=== PATIENT | female | born 1990 ===

== ENCOUNTER 2016-10-31 00:20 | Emergency (ER) | payer OTHER ==
[2016-10-31 01:03] VITALS: BP 110/59; PULSE 86; RESP 16; TEMP 98.8; O2SAT 100
--- NOTE | 2016-10-31 01:28 | ED PDOC ---
HPI: Chest Pain Time Seen by Provider: 10/31/16 00:49 Chief Complaint (Nursing): Chest Pain Chief Complaint (Provider): chest pain History Per: Patient History/Exam Limitations: no limitations Onset/Duration Of Symptoms: Hrs Current Symptoms Are (Timing): Still Present Quality: Squeezing, "Pain" Exacerbating Factors: Turning, Movement, Deep Breathing Additional History Per: Patient Additional Complaint(s): 25 y/o female presents with left-sided chest pain x 5 hours. Patient states she was laying down when pain presented, which is worsened by movement and deep breaths. Denies fever, cough, congestion, palpitations, shortness of breath, leg pain/swelling, recent travel, OCP use, tobacco use. Patient currently on Amoxicillin for right hand pain/swelling x 1 week. Patient states symptoms started after using latex gloves. Associated itching. Denies numbness/weakness, drainage from area. Past Medical History Reviewed: Historical Data, Nursing Documentation, Vital Signs Vital Signs: Last Vital Signs Temp 98.8 F 10/31/16 00:59 Pulse 86 10/31/16 00:59 Resp 16 10/31/16 00:59 BP 110/59 L 10/31/16 00:59 Pulse Ox 100 10/31/16 03:19 - Medical History PMH: No Chronic Diseases - Surgical History Surgical History: No Surg Hx - Family History Family History: States: Unknown Family Hx - Living Arrangements Living Arrangements: With Family - Social History Current smoker - smoking cessation education provided: No Alcohol: Social Drugs: Denies - Immunization History Hx Tetanus Toxoid Vaccination: No Hx Influenza Vaccination: No Hx Pneumococcal Vaccination: No - Home Medications Home Medications: Ambulatory Orders Medication Instructions Recorded Naproxen [Naprosyn Tab] 500 mg PO BID PRN #20 tab 04/01/15 Miconazole 2% [Miconazole 2% Cream] 1 ea EXT BID PRN #1 bottle 11/13/15 DiphenhydrAMINE [Benadryl] 25 mg PO Q4 PRN #30 cap 10/31/16 Hydrocortisone Janay 0.2% Cr 1 applic TP BID #1 tube 10/31/16 [Westcort] Naproxen [Naprosyn] 500 mg PO Q12 PRN #20 tablet 10/31/16 - Allergies Allergies/Adverse Reactions: Allergies Allergy/AdvReac Type Severity Reaction Status Date / Time latex Allergy RASH Verified 10/31/16 01:04 Wells Criteria for PE - Wells Criteria for Pulmonary Embolism Clinical Signs and Symptoms of DVT: No P.E is #1 Diagnosis, or Equally Likely: No Heart Rate >100: No Immobilization at least 3 days;Surgery previous 4 weeks: No Previous, objectively diagnosed PE or DVT: No Hemoptysis: No Malignancy w/treatment within 6 months, or palliative: No Total Score: 0 Review of Systems ROS Statement: Except As Marked, All Systems Reviewed And Found Negative Cardiovascular: Positive for: Chest Pain Physical Exam - Reviewed Nursing Documentation Reviewed: Yes Vital Signs Reviewed: Yes - Physical Exam Appears: Positive for: Well, Non-toxic, No Acute Distress Head Exam: Positive for: ATRAUMATIC, NORMAL INSPECTION, NORMOCEPHALIC Skin: Positive for: Normal Color Eye Exam: Positive for: Normal appearance ENT: Positive for: Normal ENT Inspection Cardiovascular/Chest: Positive for: Regular Rate, Rhythm. Negative for: Chest Non Tender (tender to palpate left anterior chest wall) Respiratory: Positive for: Normal Breath Sounds Gastrointestinal/Abdominal: Positive for: Normal Exam Back: Positive for: Normal Inspection Extremity: Positive for: Normal ROM, Swelling (distal digits of right hand, + excoriations; no temp change, drainage) Neurologic/Psych: Positive for: Alert, Oriented. Negative for: Motor/Sensory Deficits - Laboratory Results Result Diagrams: 10/31/16 02:03 10/31/16 02:03 - ECG ECG: Positive for: Viewed By Me (reviewed by ED attending) ECG Rhythm: Positive for: Sinus Rhythm O2 Sat by Pulse Oximetry: 100 Pulse Ox Interpretation: Normal - Radiology X-Ray: Viewed By Me X-Ray Interpretation: No Acute Disease - Progress ED Course And Treament: labs, xray, ekg, IV toradol On re-eval, patient states she is feeling better. Patient educated on findings, discharged with rx Naproxen, Benadryl, Westcort cream. Advised follow up PMD 2-3 days. Return to ED for worsening/concerning symptoms. Disposition - Clinical Impression Clinical Impression: Atypical chest pain, Contact dermatitis - Patient ED Disposition Is Patient to be Admitted: No Counseled Patient/Family Regarding: Studies Performed, Diagnosis, Need For Followup, Rx Given - Disposition Disposition: Routine/Home Disposition Time: 03:14 Condition: IMPROVED Prescriptions: DiphenhydrAMINE [Benadryl] 25 mg PO Q4 PRN #30 cap PRN Reason: Allergy Symptoms Hydrocortisone Janay 0.2% Cr [Westcort] 1 applic TP BID #1 tube Naproxen [Naprosyn] 500 mg PO Q12 PRN #20 tablet PRN Reason: Pain, Moderate (4-7) Instructions: Contact Dermatitis (ED), Chest Wall Pain (ED)
[2016-10-31 02:06] LABS: BASO # 0.1 K/uL (0.0-0.2); BASO % 0.7 % (0.0-2.0); EOS # 0.3 K/uL (0.0-0.7); EOS % 2.9 % (0.0-4.0); HEMATOCRIT 36.9 % (34.0-47.0); LYMPH # 3.1 K/uL (1.0-4.3); MEAN CELL VOLUME 90.4 fl (81.0-99.0); MEAN CORPUSCULAR HEMOGLOBIN 31.1 pg (27.0-31.0); MEAN CORPUSCULAR HGB CONC 34.4 g/dL (33.0-37.0); MEAN PLATELET VOLUME 8.1 fl (7.2-11.7); MONO # 0.8 K/uL (0.0-0.8); MONO % 8.1 % (0.0-10.0); NEUT # 5.1 K/uL (1.8-7.0); NEUT % 55.3 % (50.0-75.0); NRBC % 0.1 % (0.0-0.0); RED CELL DISTRIBUTION WIDTH 12.5 % (11.5-14.5); WHITE BLOOD COUNT 9.3 K/uL (4.8-10.8)
[2016-10-31 02:29] LABS: ALB/GLOB RATIO 1.5 (1.0-2.1); ALKALINE PHOSPHATASE 54 U/L (38-126); ALT/SGPT 34 U/L (9-52); AST/SGOT 24 U/L (14-36); BILIRUBIN,TOTAL 0.3 mg/dl (0.2-1.3); BLOOD UREA NITROGEN 12 mg/dl (7-17); CALCIUM 8.9 mg/dL (8.4-10.2); CARBON DIOXIDE 25 mmol/L (22-30); CHLORIDE 105 mmol/L (98-107); GFR AFRICAN-AMERICAN > 60; GLUCOSE,RANDOM 94 mg/dL (65-105); POTASSIUM 3.5 MMOL/L (3.6-5.0); SODIUM 139 mmol/l (132-148); TOTAL PROTEIN 7.3 G/DL (6.3-8.2)
--- NOTE | 2016-10-31 10:36 | CARD ---
APPROVED REPORT EKG Measurement Heart [id number] <Conclusion> Normal sinus rhythm Normal ECG
--- NOTE | 2016-10-31 10:38 | RAD ---
HISTORY: COMPARISON: No prior. TECHNIQUE: Chest PA and lateral FINDINGS: LINES AND TUBES: None. LUNG AND PLEURA: There is mild pulmonary hyperinflation and peribronchial thickening with streaky opacities in both lungs. No focal consolidation. There are no pleural effusions or pneumothorax. HEART AND MEDIASTINUM: The heart is not enlarged. The hilar and mediastinal contours are within normal limits. SKELETAL STRUCTURES: The bony structures are within normal limits for the patient's age. VISUALIZED UPPER ABDOMEN: Normal. OTHER FINDINGS: None. IMPRESSION: Findings are most compatible with reactive small airway disease/ viral bronchitis. No lobar pneumonia.
== END 2016-10-31 03:40 | disposition home or self-care (01) ==
LOC: H.ER 00:20
DX: L25.9 Unspecified contact dermatitis, unspecified cause (principal); R07.9 Chest pain, unspecified
CPT/HCPCS: 71020; 80053; 81025; 84484; 85025; 93005; 99282; J1885

== ENCOUNTER 2017-07-11 22:51 | Emergency (ER) | payer SELFPAY ==
[2017-07-11 23:00] VITALS: O2SAT 99
[2017-07-11] MEDS ORDERED: Iohexol 240 (50 ml) PO ONE (23:57)
--- NOTE | 2017-07-12 00:02 | ED PDOC ---
HPI: Abdomen Time Seen by Provider: 07/11/17 23:29 Chief Complaint (Nursing): Abdominal Pain Chief Complaint (Provider): abdominal pain History Per: Patient History/Exam Limitations: no limitations Onset/Duration Of Symptoms: Days (1) Current Symptoms Are (Timing): Still Present Location Of Pain/Discomfort: RLQ Quality Of Discomfort: Burning, "Pain" Additional Complaint(s): 26 y/o female presents with right lower abdominal pain x 1 day. Associated low back pain. Denies fever, nausea/vomiting, changes in bowel movements, urinary symptoms, vaginal bleeding/discharge. Patient currently on treatment for H. Pylori Past Medical History Reviewed: Historical Data, Nursing Documentation, Vital Signs Vital Signs: Last Vital Signs Temp 97.8 F 07/11/17 22:58 Pulse 75 07/11/17 22:58 Resp 20 07/11/17 22:58 BP 124/79 07/11/17 22:58 Pulse Ox 99 07/12/17 00:02 - Medical History PMH: No Chronic Diseases - Surgical History Surgical History: No Surg Hx - Family History Family History: States: Unknown Family Hx - Immunization History Hx Tetanus Toxoid Vaccination: No Hx Influenza Vaccination: No Hx Pneumococcal Vaccination: No - Home Medications Home Medications: Ambulatory Orders Medication Instructions Recorded Naproxen [Naprosyn Tab] 500 mg PO BID PRN #20 tab 04/01/15 Miconazole 2% [Miconazole 2% Cream] 1 ea EXT BID PRN #1 bottle 11/13/15 DiphenhydrAMINE [Benadryl] 25 mg PO Q4 PRN #30 cap 10/31/16 Hydrocortisone Janay 0.2% Cr 1 applic TP BID #1 tube 10/31/16 [Westcort] Naproxen [Naprosyn] 500 mg PO Q12 PRN #20 tablet 10/31/16 - Allergies Allergies/Adverse Reactions: Allergies Allergy/AdvReac Type Severity Reaction Status Date / Time latex Allergy RASH Verified 10/31/16 01:04 Review of Systems ROS Statement: Except As Marked, All Systems Reviewed And Found Negative Gastrointestinal: Positive for: Abdominal Pain Physical Exam - Reviewed Nursing Documentation Reviewed: Yes Vital Signs Reviewed: Yes - Physical Exam Appears: Positive for: Well, Non-toxic, No Acute Distress Head Exam: Positive for: ATRAUMATIC, NORMAL INSPECTION, NORMOCEPHALIC Skin: Positive for: Normal Color Eye Exam: Positive for: Normal appearance ENT: Positive for: Normal ENT Inspection Cardiovascular/Chest: Positive for: Regular Rate, Rhythm Respiratory: Positive for: Normal Breath Sounds Gastrointestinal/Abdominal: Positive for: Bowel Sounds, Soft, Tenderness (rlq tenderness to deep palpation) Back: Positive for: Normal Inspection Extremity: Positive for: Normal ROM Neurologic/Psych: Positive for: Alert, Oriented - Laboratory Results Result Diagrams: 07/12/17 00:22 07/12/17 00:22 - ECG O2 Sat by Pulse Oximetry: 99 - Progress ED Course And Treament: labs, urine, IV toradol, CT abd/pelvis EXAM: CT Abdomen and Pelvis With Intravenous Contrast CLINICAL HISTORY: 26 years old, female; Pain; Abdominal pain; Localized; Right; Additional info: Right lower abd pain TECHNIQUE: Axial computed tomography images of the abdomen and pelvis with intravenous contrast. All CT scans at this facility use one or more dose reduction techniques, viz.: automated exposure control; ma/kV adjustment per patient size (including targeted exams where dose is matched to indication; i.e. head); or iterative reconstruction technique. Coronal and sagittal reformatted images were created and reviewed. CONTRAST: 90 mL of [id number] administered intravenously. COMPARISON: CT - ABD PELVIS PO IV CONTRAST 2015-04-01 15:26 FINDINGS: Lung bases: Unremarkable. No mass. No consolidation. ABDOMEN: Liver: Unremarkable. No mass. Gallbladder and bile ducts: Unremarkable. No calcified stones. No ductal dilation. Pancreas: Unremarkable. No mass. No ductal dilation. Spleen: Unremarkable. No splenomegaly. Adrenals: Unremarkable. No mass. Kidneys and ureters: Unremarkable. No solid mass. No hydronephrosis. Stomach and bowel: There is a moderate amount of retained stool in the colon. No obstruction. No mucosal thickening. There is no wall thickening or pericolonic stranding to suggest colitis. PELVIS: Appendix: A normal appendix is identified. A normal appendix is identified. Bladder: Unremarkable. No mass. Reproductive: 2.7 cm low-density structure in the right pelvis most likely an ovarian cyst. ABDOMEN and PELVIS: Intraperitoneal space: Unremarkable. No free air. No significant fluid collection. Bones/joints: No acute fracture. No dislocation. Soft tissues: There is a fat-containing umbilical hernia. Vasculature: Unremarkable. No abdominal aortic aneurysm. Lymph nodes: Unremarkable. No enlarged lymph nodes. IMPRESSION: No evidence of an acute intra-abdominal or pelvic abnormality. No evidence of acute appendicitis. Probable right ovarian cyst. No follow-up is necessary. On re-eval, patient resting comfortably, states she is feeling better. 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 Advised Tylenol PRN pain. Return precautions given. Disposition - Clinical Impression Clinical Impression: Ovarian cyst - Patient ED Disposition Is Patient to be Admitted: No Counseled Patient/Family Regarding: Studies Performed, Diagnosis, Need For Followup - Disposition [facility] Disposition: Routine/Home Disposition Time: 02:44 Condition: IMPROVED Instructions: Ovarian Cysts Forms: [facility] (Lithuanian)
[2017-07-12] MEDS ORDERED: Iohexol 240 (50 ml) ONE (00:13)
[2017-07-12 00:33] LABS: BASO # 0.1 K/uL (0.0-0.2); EOS # 0.3 K/uL (0.0-0.7); EOS % 4.1 % (0.0-4.0); HEMOGLOBIN 12.5 g/dL (12.0-16.0); LYMPH # 2.5 K/uL (1.0-4.3); LYMPH % 36.7 % (20.0-40.0); MEAN CELL VOLUME 92.5 fl (81.0-99.0); MEAN CORPUSCULAR HEMOGLOBIN 30.9 pg (27.0-31.0); MEAN CORPUSCULAR HGB CONC 33.4 g/dL (33.0-37.0); MEAN PLATELET VOLUME 7.9 fl (7.2-11.7); MONO # 0.6 K/uL (0.0-0.8); NEUT # 3.5 K/uL (1.8-7.0); NEUT % 50.2 % (50.0-75.0); RBC 4.06 Mil/uL (3.80-5.20); RED CELL DISTRIBUTION WIDTH 12.8 % (11.5-14.5); WHITE BLOOD COUNT 6.9 K/uL (4.8-10.8)
[2017-07-12 00:42] LABS: ALB/GLOB RATIO 1.4 (1.0-2.1); ALBUMIN 4.2 g/dL (3.5-5.0); ALT/SGPT 30 U/L (9-52); AST/SGOT 37 U/L (14-36); BLOOD UREA NITROGEN 7 mg/dl (7-17); CALCIUM 9.4 mg/dL (8.4-10.2); GFR AFRICAN-AMERICAN > 60; GFR NON-AFRICAN AMERICAN > 60
[2017-07-12 00:44] LABS: SQUAMOUS EPITHIAL 6 /hpf (0-5); URINE BACTERIA OCC (<OCC); URINE BILIRUBIN NEGATIVE (NEGATIVE); URINE BLOOD SMALL (NEGATIVE); URINE CLARITY SLIGHTY-CLOUDY (Clear); URINE COLOR STRAW (YELLOW); URINE GLUCOSE (UA) NEG (Normal); URINE LEUKOCYTE ESTERASE NEG Leu/uL (Negative); URINE PROTEIN NEGATIVE (NEGATIVE); URINE UROBILINOGEN 0.2-1.0 mg/dL (0.2-1.0)
[2017-07-12] MEDS ORDERED: Iohexol 300 100 ML IJ ONE (01:38)
[2017-07-12] MEDS ORDERED: Sodium Chloride 0.9% 100 ML ONE (01:38)
--- NOTE | 2017-07-12 02:18 | CT ---
EXAM: CT Abdomen and Pelvis With Intravenous Contrast CLINICAL HISTORY: 26 years old, female; Pain; Abdominal pain; Localized; Right; Additional info: Right lower abd pain TECHNIQUE: Axial computed tomography images of the abdomen and pelvis with intravenous contrast. All CT scans at this facility use one or more dose reduction techniques, viz.: automated exposure control; ma/kV adjustment per patient size (including targeted exams where dose is matched to indication; i.e. head); or iterative reconstruction technique. Coronal and sagittal reformatted images were created and reviewed. CONTRAST: 90 mL of [id number] administered intravenously. COMPARISON: CT - ABD PELVIS PO IV CONTRAST 2015-04-01 15:26 FINDINGS: Lung bases: Unremarkable. No mass. No consolidation. ABDOMEN: Liver: Unremarkable. No mass. Gallbladder and bile ducts: Unremarkable. No calcified stones. No ductal dilation. Pancreas: Unremarkable. No mass. No ductal dilation. Spleen: Unremarkable. No splenomegaly. Adrenals: Unremarkable. No mass. Kidneys and ureters: Unremarkable. No solid mass. No hydronephrosis. Stomach and bowel: There is a moderate amount of retained stool in the colon. No obstruction. No mucosal thickening. There is no wall thickening or pericolonic stranding to suggest colitis. PELVIS: Appendix: A normal appendix is identified. A normal appendix is identified. Bladder: Unremarkable. No mass. Reproductive: 2.7 cm low-density structure in the right pelvis most likely an ovarian cyst. ABDOMEN and PELVIS: Intraperitoneal space: Unremarkable. No free air. No significant fluid collection. Bones/joints: No acute fracture. No dislocation. Soft tissues: There is a fat-containing umbilical hernia. Vasculature: Unremarkable. No abdominal aortic aneurysm. Lymph nodes: Unremarkable. No enlarged lymph nodes. IMPRESSION: No evidence of an acute intra-abdominal or pelvic abnormality. No evidence of acute appendicitis. Probable right ovarian cyst. No follow-up is necessary.
[2017-07-12 02:54] VITALS: BP 120/67; PULSE 77; RESP 16; TEMP 98
== END 2017-07-12 02:54 | disposition home or self-care (01) ==
LOC: H.ER 22:51
DX: N83.201 Unspecified ovarian cyst, right side (principal)
CPT/HCPCS: 74177; 80053; 81003; 85025; 96374; 99283; J1885; Q9966; Q9967

== ENCOUNTER 2017-12-27 16:54 | Emergency (ER) | payer SELFPAY ==
[2017-12-27 18:15] VITALS: BP 125/80; PULSE 78; RESP 16; TEMP 98.3; O2SAT 99
[2017-12-27] MEDS ORDERED: Lidocaine 2% w Epi 1:100,000 Inj IJ ONE (19:07)
--- NOTE | 2017-12-27 19:24 | ED PDOC ---
Lower Extremity Pain/Injury Time Seen by Provider: 12/27/17 18:26 Chief Complaint (Nursing): Lower Extremity Problem/Injury Chief Complaint (Provider): pain, left plantar arch History Per: Patient History/Exam Limitations: no limitations Onset/Duration Of Symptoms: Days (3x) Current Symptoms Are (Timing): Still Present Severity: Moderate Additional Complaint(s): 27 year old female with no pertinent past medical history presents to the ED with complaints of left plantar arch pain that started 3x days ago. Patient reports taking tylenol with no relief. Patient denies having any other complaints. PMD: Monserrat Beavers MD Past Medical History Reviewed: Historical Data, Nursing Documentation, Vital Signs Vital Signs: Last Vital Signs Temp 98.3 F 12/27/17 18:13 Pulse 78 12/27/17 18:13 Resp 16 12/27/17 18:13 BP 125/80 12/27/17 18:13 Pulse Ox 99 12/27/17 18:13 - Medical History PMH: No Chronic Diseases - Surgical History Surgical History: No Surg Hx - Family History Family History: States: No Known Family Hx - Social History Alcohol: None Drugs: Denies - Immunization History Hx Tetanus Toxoid Vaccination: No Hx Influenza Vaccination: No Hx Pneumococcal Vaccination: No - Home Medications Home Medications: Ambulatory Orders Medication Instructions Recorded Naproxen [Naprosyn Tab] 500 mg PO BID PRN #20 tab 04/01/15 Miconazole 2% [Miconazole 2% Cream] 1 ea EXT BID PRN #1 bottle 11/13/15 DiphenhydrAMINE [Benadryl] 25 mg PO Q4 PRN #30 cap 10/31/16 Hydrocortisone Janay 0.2% Cr 1 applic TP BID #1 tube 10/31/16 [Westcort] Naproxen [Naprosyn] 500 mg PO Q12 PRN #20 tablet 10/31/16 Naproxen [Naprosyn] 500 mg PO BID PRN #20 tablet 12/27/17 - Allergies Allergies/Adverse Reactions: Allergies Allergy/AdvReac Type Severity Reaction Status Date / Time latex Allergy RASH Verified 10/31/16 01:04 Review of Systems ROS Statement: Except As Marked, All Systems Reviewed And Found Negative Musculoskeletal: Positive for: Foot Pain (left plantar arch) Physical Exam - Reviewed Nursing Documentation Reviewed: Yes Vital Signs Reviewed: Yes - Physical Exam Appears: Positive for: Well, Non-toxic, No Acute Distress Head Exam: Positive for: ATRAUMATIC, NORMOCEPHALIC Skin: Positive for: Normal Color Eye Exam: Positive for: Normal appearance Neck: Positive for: Normal Cardiovascular/Chest: Negative for: Bradycardia, Tachycardia Respiratory: Negative for: Accessory Muscle Use, Respiratory Distress Extremity: Positive for: Tenderness (tenderness of the left plantar surface.), Other (bony prominance of first proximal metatarsal) Neurologic/Psych: Positive for: Alert, Oriented (3x) - ECG O2 Sat by Pulse Oximetry: 99 (RA) Pulse Ox Interpretation: Normal Medical Decision Making Medical Decision Makin:26 Initial impression: 27 year old female with left plantar arch pain Initial plan: * motrin tab 600 mg PO * XRay foot left 3 views * reevaluation XR without acute fracture or dislocation. Scribe Attestation: Documented by Madonna Jeter, acting as a scribe for Zoë Donaldson PA-C. Provider Scribe Attestation: All medical record entries made by the Scribe were at my direction and personally dictated by me. I have reviewed the chart and agree that the record accurately reflects my personal performance of the history, physical exam, medical decision making, and the department course for this patient. I have also personally directed, reviewed, and agree with the discharge instructions and disposition Disposition - Clinical Impression Clinical Impression: Plantar fasciitis - Patient ED Disposition Is Patient to be Admitted: No Counseled Patient/Family Regarding: Diagnosis, Need For Followup - Disposition Referrals: [facility] [Outside] Disposition: Routine/Home Disposition Time: 20:24 Condition: STABLE Prescriptions: Naproxen [Naprosyn] 500 mg PO BID PRN #20 tablet PRN Reason: Pain Instructions: Plantar Fasciitis Exercises, Heel Pain (Caused by Plantar Fasciitis) (DC) Forms: [employer] (Kiswahili)
--- NOTE | 2017-12-28 09:55 | RAD ---
Date of service: 12/27/2017 PROCEDURE: Left Foot Radiographs. HISTORY: pain, no trauma COMPARISON: None. FINDINGS: BONES: No acute fracture or destructive bony lesion identified. JOINTS: Normal. SOFT TISSUES: Normal. OTHER FINDINGS: None. IMPRESSION: Normal left foot radiographs.
== END 2017-12-27 20:30 | disposition home or self-care (01) ==
LOC: H.ER 16:54
DX: M72.2 Plantar fascial fibromatosis (principal)

== ENCOUNTER 2018-07-14 13:23 | Emergency (ER) | payer SELFPAY ==
[2018-07-14] MEDS ORDERED: Metoclopramide 10 mg/10 ml Cup PO ONE (13:39)
--- NOTE | 2018-07-14 14:46 | CT ---
Date of service: 07/14/2018 PROCEDURE: CT HEAD WITHOUT CONTRAST. HISTORY: Headache COMPARISON: No prior TECHNIQUE: Axial computed tomography images were obtained through the head/brain without intravenous contrast. Radiation dose: Total exam DLP = 839.84 mGy-cm. This CT exam was performed using one or more of the following dose reduction techniques: Automated exposure control, adjustment of the mA and/or kV according to patient size, and/or use of iterative reconstruction technique. FINDINGS: HEMORRHAGE: No intracranial hemorrhage. BRAIN: No mass effect or edema. No atrophy or chronic microvascular ischemic changes. VENTRICLES: Unremarkable. No hydrocephalus. CALVARIUM: Unremarkable. PARANASAL SINUSES: Minimal mucosal thickening left maxillary sinus MASTOID AIR CELLS: Unremarkable as visualized. No inflammatory changes. OTHER FINDINGS: None. IMPRESSION: No intracranial hemorrhage
--- NOTE | 2018-07-14 15:46 | ED PDOC ---
HPI: Headache Time Seen by Provider: 07/14/18 13:31 Chief Complaint (Nursing): Headache Chief Complaint (Provider): headache History Per: Patient History/Exam Limitations: no limitations Onset/Duration Of Symptoms: Days (3x) Current Symptoms Are (Timing): Still Present Severity: Moderate Associated Symptoms: Nausea. denies: Vomiting, Other (fevers, chills, rashes, nasal congestion, light sensitivity) Additional Complaint(s): 27 year old female with a past medical history of headaches presents to the ED for an evaluation of a gradual onset constant headache localized to the forehead that started 2-3x days ago. Patient states that 1x month ago, she had local anesthetic injected into her eyebrows to get her eyebrows done, and did not feel pain until 2-3x days ago. Patient reports taking exedrin with no relief. Patient states that she has a history of headaches, but they are usually localized to the top of her head as opposed to her forehead. Patient reports having mild nausea, but denies having vomiting. Patient denies having head injuries, fevers, chills, rashes, nasal congestion, and light sensitivity. PMD: Monserrat Beavers MD Past Medical History Reviewed: Historical Data, Nursing Documentation, Vital Signs Vital Signs: Last Vital Signs Temp 98.5 F 07/14/18 13:25 Pulse 87 07/14/18 13:25 Resp 16 07/14/18 13:25 BP 110/72 07/14/18 13:25 Pulse Ox 98 07/14/18 13:25 DONNIE Report Viewed: Yes - Medical History PMH: No Chronic Diseases - Surgical History Surgical History: No Surg Hx - Family History Family History: States: No Known Family Hx - Social History Current smoker - smoking cessation education provided: Yes (light) Alcohol: Social Drugs: Denies - Immunization History Hx Tetanus Toxoid Vaccination: No Hx Influenza Vaccination: No Hx Pneumococcal Vaccination: No - Home Medications Home Medications: Ambulatory Orders Medication Instructions Recorded Naproxen [Naprosyn Tab] 500 mg PO BID PRN #20 tab 04/01/15 Miconazole 2% [Miconazole 2% Cream] 1 ea EXT BID PRN #1 bottle 11/13/15 DiphenhydrAMINE [Benadryl] 25 mg PO Q4 PRN #30 cap 10/31/16 Hydrocortisone Janay 0.2% Cr 1 applic TP BID #1 tube 10/31/16 [Westcort] Naproxen [Naprosyn] 500 mg PO Q12 PRN #20 tablet 10/31/16 Naproxen [Naprosyn] 500 mg PO BID PRN #20 tablet 12/27/17 Ibuprofen [Motrin] 600 mg PO Q6 PRN #10 tab 07/14/18 Metoclopramide [Reglan] 10 mg PO TID PRN #10 tab 07/14/18 - Allergies Allergies/Adverse Reactions: Allergies Allergy/AdvReac Type Severity Reaction Status Date / Time latex Allergy RASH Verified 10/31/16 01:04 Review of Systems ROS Statement: Except As Marked, All Systems Reviewed And Found Negative Constitutional: Negative for: Fever, Chills ENT: Negative for: Nose Congestion Gastrointestinal: Positive for: Nausea. Negative for: Vomiting Skin: Negative for: Rash Neurological: Positive for: Headache (localized to forehead). Negative for: Other (light sensitivity) Physical Exam - Reviewed Nursing Documentation Reviewed: Yes Vital Signs Reviewed: Yes - Physical Exam Appears: Positive for: Well, Non-toxic, No Acute Distress Head Exam: Positive for: ATRAUMATIC, NORMOCEPHALIC Skin: Positive for: Normal Color, Warm, Dry Eye Exam: Positive for: Normal appearance, EOMI, PERRL ENT: Positive for: Normal ENT Inspection Gastrointestinal/Abdominal: Positive for: Normal Exam, Soft. Negative for: Tenderness Neurological/Psych: Positive for: Awake, Alert, Oriented (3x), Other (equal public finance specialist strength bilaterally. (-) aphasia). Negative for: Facial Droop - ECG O2 Sat by Pulse Oximetry: 98 (RA) Pulse Ox Interpretation: Normal - CT Scan/US CT head w/o contrast Other Rad Studies (CT/US): Read By Radiologist, Radiology Report Reviewed (see MDM note) - Progress Re-evaluation Time: 14:50 (Informed of results. Reports headache has improved. Repeat neuro exam is non-focal.) Condition: Re-examined, Improved Medical Decision Making Medical Decision Makin:31 Initial impression: 27 year old female with a headache Initial plan: * CT head w/o contrast * reglan 10 mg PO ACHS * toradol 30 mg IM once * reevaluation 14:43 CT head read and reviewed by radiologist FINDINGS: HEMORRHAGE: No intracranial hemorrhage. BRAIN: No mass effect or edema. No atrophy or chronic microvascular ischemic changes. VENTRICLES: Unremarkable. No hydrocephalus. CALVARIUM: Unremarkable. PARANASAL SINUSES: Minimal mucosal thickening left maxillary sinus MASTOID AIR CELLS: Unremarkable as visualized. No inflammatory changes. OTHER FINDINGS: None. IMPRESSION: No intracranial hemorrhage Scribe Attestation: Documented by Madonna Jeter, acting as a scribe for Gorge Marcelino Provider Scribe Attestation: All medical record entries made by the Scribe were at my direction and personally dictated by me. I have reviewed the chart and agree that the record accurately reflects my personal performance of the history, physical exam, medical decision making, and the department course for this patient. I have also personally directed, reviewed, and agree with the discharge instructions and disposition. Disposition - Clinical Impression Clinical Impression: Acute headache - Patient ED Disposition Is Patient to be Admitted: No - Disposition Referrals: Reno Sauer MD [Medical Doctor] - Disposition: Routine/Home Disposition Time: 14:50 Condition: IMPROVED Additional Instructions: FOLLOW UP WITH YOUR DOCTOR OR DR. SAUER FOR FURTHER EVALUATION RETURN TO ED IMMEDIATELY IF SYMPTOMS WORSEN PATTI GERMAN, thank you for letting us take care of you today. Your provider was Lynne Elizondo MD and you were treated for HEADACHE. The emergency medical care you received today was directed at your acute symptoms. If you were prescribed any medication, please fill it and take as directed. It may take several days for your symptoms to resolve. Return to the Emergency Department if your symptoms worsen, do not improve, or if you have any other problems. Please contact your doctor or call one of the physicians/clinics you have been referred to that are listed on the Patient Visit Information form that is included in your discharge packet. Bring any paperwork you were given at discharge with you along with any medications you are taking to your follow up visit. Our treatment cannot replace ongoing medical care by a primary care provider outside of the emergency department. Thank you for allowing the [facility] team to be part of your care today. If you had an X-Ray or CT scan: A Radiologist will review the ED reading if any change in treatment is needed we will contact you. If you had a blood, urine, or wound culture: It will take several days for the results, if any change in treatment is needed we will contact you. If you had an STI test: It will take 48 hours for the results. Please call after 1 week if you have not heard back. Prescriptions: Ibuprofen [Motrin] 600 mg PO Q6 PRN #10 tab PRN Reason: Headache Metoclopramide [Reglan] 10 mg PO TID PRN #10 tab PRN Reason: headache or nausea Instructions: Acute Headache (ED) Forms: Yapp (Irish) Print Language: LATVIAN
[2018-07-14 16:01] VITALS: BP 107/70; PULSE 82; RESP 17; TEMP 98.8
[2018-07-14 18:52] VITALS: O2SAT 98
== END 2018-07-14 16:00 | disposition home or self-care (01) ==
LOC: H.ER 13:23
DX: R51 Headache (principal); R11.0 Nausea
CPT/HCPCS: 70450; 81025; 96372; 99285; J1885